=== PATIENT | male | born 1945 | race Caucasian/White ===

== ENCOUNTER 2018-10-26 11:41 | Outpatient (CLI) | payer MEDICARE ==
[~2018-10-26] VITALS: Ht 182.9 cm; Wt 86.2 kg
[2018-10-26] MEDS ORDERED: CEFU250T80 PO (15:23)
[2018-10-26] MEDS ORDERED: ATEN50TA PO (15:23)
[2018-10-26] MEDS ORDERED: LISI1TAB10 PO (15:23)
[2018-10-26] MEDS ORDERED: APIX5TAB PO (15:23)
== END 2018-10-26 15:42 | disposition home or self-care (01) ==
LOC: PREOP 11:41
PROVIDERS: ATTEND Otolaryngology Otolaryngology/Facial Plastic Surgery
DX: Z01.818 Encounter for other preprocedural examination (principal)

== ENCOUNTER 2018-10-28 07:33 | Day surgery (SDC) | payer MEDICARE ==
[2018-10-28] VITALS (11 sets, daily range): BP systolic 123–138; BP diastolic 58–81
[~2018-10-28] VITALS: Ht 182.9 cm; Wt 86.2 kg
[~2018-10-28 07:33] MED LIST: APIX5TAB PO; ATEN50TA PO; CEFU250T80 PO; LISI1TAB10 PO
[2018-10-28] MEDS ORDERED: LACTATED RINGERS 1,000 ML IV PRN (07:57)
[2018-10-28 08:37] LABS: BASOPHILS % (AUTO) 0 % (0-10); EOSINOPHILS # (AUTO) 0.1 10^3/uL (0.0-0.3); EOSINOPHILS % (AUTO) 2 % (0-10); HEMATOCRIT 43 % (40-54); HEMOGLOBIN 14.3 G/DL (13.3-17.7); LYMPHOCYTES % (AUTO) 30 % (12-44); MEAN CORPUSCULAR HEMOGLOBIN 32 PG (25-34); MEAN CORPUSCULAR HGB CONC 34 G/DL (32-36); MEAN CORPUSCULAR VOLUME 94 FL (80-99); MEAN PLATELET VOLUME 10.9 FL (7.4-10.4); MONOCYTES # (AUTO) 0.6 X 10^3 (0.0-1.0); MONOCYTES % (AUTO) 8 % (0-12); NEUTROPHILS # (AUTO) 4.1 X 10^3 (1.8-7.8); NEUTROPHILS % (AUTO) 60 % (42-75); PLATELET COUNT 172 10^3/uL (130-400); RED CELL DISTRIBUTION WIDTH 13.6 % (10.0-14.5); WHITE BLOOD COUNT 6.8 10^3/uL (4.3-11.0)
[2018-10-28 08:48] LABS: BUN/CREATININE RATIO 15; CALCIUM 9.3 MG/DL (8.5-10.1); CARBON DIOXIDE 28 MMOL/L (21-32); CHLORIDE 102 MMOL/L (98-107); CREATININE SERUM 1.06 MG/DL (0.60-1.30); GFR ESTIMATED > 60; GLUCOSE 97 MG/DL (70-105); POTASSIUM 3.4 MMOL/L (3.6-5.0); SODIUM 141 MMOL/L (135-145)
[2018-10-28] MEDS ORDERED: MUPIROCIN 2% OINT 22 GM (BACTROBAN) TUBE ONE (09:06)
[2018-10-28] MEDS ORDERED: LIDOCAINE/EPI 1%-1:100,000 (XYLOCAINE) 20ML ONE (09:07)
--- NOTE | 2018-10-28 09:59 | Progress Note-Pre Operative ---
Pre-Operative Progress Note H&P Reviewed The H&P was reviewed, patient examined and no changes noted. Date Seen by Provider: Oct 28, 2018 Time Seen by Provider: 09:00 Date H&P Reviewed: Oct 28, 2018 Time H&P Reviewed: 09:00 Pre-Operative Diagnosis: Right Submandibulart Duct Stone JOSH PENDLETON MD Oct 28, 2018 09:59
[2018-10-28] MEDS ORDERED: SEVOFLURANE (ULTANE) 15 ML INHAL SOLN ONE ×3 (10:10→10:55)
[2018-10-28] MEDS ORDERED: proPOfol 200 MG/20 ML (DIPRIVAN) VIAL IV ONE (10:10)
[2018-10-28] MEDS ORDERED: LIDOCAINE PF 2% 5 ML (XYLOCAINE) VIAL ONE (10:10)
[2018-10-28] MEDS ORDERED: fentaNYL INJECTION 100 MCG/2 ML AMP ONE (10:11)
[2018-10-28] MEDS ORDERED: GLYCOPYRROLATE 0.2 MG/ML (ROBINUL) 2 ML VIAL ONE (10:26)
[2018-10-28] MEDS ORDERED: NEOSTIGMINE 3 MG/3 ML VIAL ONE (10:33)
[2018-10-28] MEDS ORDERED: ROCURONIUM 10 MG/ML 5 ML SYRINGE IV ONE (10:38)
[2018-10-28] MEDS ORDERED: APAP 325 MG/10.15 ML LIQ (TYLENOL) UDC PO PRN (10:45)
[2018-10-28] MEDS ORDERED: NS IV 1000 ML 1,000 ML IV SCH (10:45)
[2018-10-28] MEDS ORDERED: HYDROcodone/APAP 5 MG/325 MG (LORTAB) TAB PO PRN (10:45)
--- NOTE | 2018-10-28 10:45 | Progress Note-Post Operative ---
Post-Operative Progess Note Surgeon (s)/Benefits Consultant (s) Surgeon JOSH PENDLETON MD Benefits Consultant n/a Pre-Operative Diagnosis Right Submandibulart Duct Stone Post-Operative Diagnosis same Post-Op Procedure Note Date of Procedure: Oct 28, 2018 Name of Procedure Performed: Intraoral Removal of Right Submandibular Duct Stones Description & Findings Description and Findings: n/a Anesthesia Type get Estimated Blood Loss minimal Packing none. Specimen(s) collected/removed right submandibualr duct stones to patient JOSH PENDLETON MD Oct 28, 2018 10:45
[2018-10-28] MEDS ORDERED: ONDANSETRON 4 MG/2 ML (SDV) Z0FRAN IVP PRN (11:00)
[2018-10-28] MEDS ORDERED: fentaNYL INJECTION 100 MCG/2 ML AMP IVP ONE (11:00)
--- NOTE | 2018-10-28 14:18 | Anesthesia-General Post-Op ---
General Patient Condition Mental Status/LOC: Same as Preop Cardiovascular: Satisfactory Nausea/Vomiting: Absent Respiratory: Satisfactory Pain: Controlled Complications: Absent Post Op Complications Complications None Follow Up Care/Instructions Patient Instructions None needed. Anesthesia/Patient Condition Patient Condition Patient is doing well, no complaints, stable vital signs, no apparent adverse anesthesia problems. No complications reported per nursing. JERALD LOPEZ CRNA Oct 28, 2018 14:18
== END 2018-10-28 13:10 | disposition home or self-care (01) ==
LOC: EDBD → SDC 07:33
PROVIDERS: ATTEND Otolaryngology Otolaryngology/Facial Plastic Surgery
DX: K11.5 Sialolithiasis (principal); I10 Essential (primary) hypertension; I63.9 Cerebral infarction, unspecified; Z79.01 Long term (current) use of anticoagulants; Z79.899 Other long term (current) drug therapy; Z80.9 Family history of malignant neoplasm, unspecified; Z82.3 Family history of stroke; Z82.49 Family history of ischemic heart disease and other diseases of the circulatory system; Z82.2 Family history of deafness and hearing loss
CPT/HCPCS: 36415; 80048; 85025; 87081; 93005